=== PATIENT | male | born 1985 | race Caucasian/White ===

== ENCOUNTER 2024-12-06 17:00 | Observation (INO) | payer OTHER, SELFPAY ==
[2024-12-06] VITALS (45 sets, daily range): BP systolic 114–146; BP diastolic 74–92; PULSE 70–86; RESP 16–18; TEMP 36.6; O2SAT 95–100
--- NOTE | 2024-12-06 17:03 | ED.ABDPAIN ---
HPI - Abdominal Pain General Chief Complaint: Abdominal Pain Stated Complaint: abdominal pain Time Seen by Provider: 12/06/24 17:03 Source: patient Mode of arrival: ambulatory Limitations: no limitations History of Present Illness HPI narrative: Patient is a 38-year-old male with a 5 day history of nausea vomiting with anorexia and abdominal pain mid epigastric. MD elicited complaint: abdominal pain Pertinent past history: none Onset (ago): day(s) ( Five) Pain Consistency: constant Location: epigastric Severity: moderate Pain scale (0-10): 5 Quality: stabbing and sharp Radiation: none Migration to: no migration Exacerbating factors: nothing Relieving factors: nothing Context: confirms other ( patient having abdominal pain with nausea and vomiting and no diarrhea for the past 5 days) Associated symptoms: nausea, vomiting and anorexia Treatments prior to arrival: other ( none) Related Data Allergies Allergy/AdvReac Type Severity Reaction Status Date / Time No Known Allergies Allergy Mild Verified 12/06/24 17:02 Review of Systems Review of Systems: All systems reviewed & are unremarkable except as noted in HPI and below Constitutional: Constitutional: Reports no additional constitutional complaints Eyes: Eyes: Reports no additional eye complaints ENT: Reports system reviewed and no additional complaints, except as documented Cardiovascular: Cardiovascular: Reports no additional cardiovascular complaints Respiratory: Respiratory: Reports no additional respiratory complaints Gastrointestinal: Gastrointestinal: Reports no additional gastrointestinal complaints Genitourinary: Genitourinary: Reports no additional male genitourinary complaints Musculoskeletal: Musculoskeletal: Reports no additional musculoskeletal complaints Integumentary/Breasts: Skin/Breast: Reports system reviewed and no additional complaints, except as docu Neurologic: Reports system reviewed and no additional complaints, except as documented Psychiatric: Psychiatric: Reports no additional psychiatric complaints Endocrine: Endocrine: Reports no additional endocrine complaints Hematologic/Lymphatic: Hematologic/Lymphatic: Reports no additional hematologic/lymphatic complaints Allergic/Immunologic: Allergic/Immunologic: Reports no additional allergic/immunologic complaints Exam Const: General: ill appearing Nutritional Appearance: well nourished Orientation/consciousness: patient oriented x3 Limitations: no limitations HENMT: Head: normal to inspection Ears: external ears normal Face/Nose/Sinus: Normal external nose present Eyes: Conjunctivae: conjunctivae normal Pupils: Equal, round and reactive pupils present EOM: EOMs intact bilaterally Neck: Neck: normal visual inspection Chest: Chest palpation & inspection: normal inspection of the chest Resp: Effort & Inspection: normal respiratory effort and not labored Auscultation: clear to auscultation bilaterally and no crackles Cardio: Rate: regular rate Rhythm: regular rhythm Heart sounds: no murmurs GI: Inspection: non-distended GI Palp: Yes Soft to palpation, Yes Tenderness to palpation present (GI) ( mid epigastric), Yes Guarding due to palpation present (GI), No Rigid due to palpation, No Hernia present, No Palpable mass present and No Rebound tenderness present Auscultation: bowels sounds not normal and Hypoactive bowel sounds present : General: Yes bladder normal to palpation Back/Spine/Pelvis: Back: no CVA tenderness Skin: General skin exam: normal color Rashes: no rashes Wounds: no wounds Neuro: General: patient oriented x3 Cranial nerves: Yes Nystagmus not present Speech: normal speech Gait exam (Neuro): Normal gait present Extrem: General: normal to inspection Psych: Mental Status: mental status grossly normal Affect: normal affect Attitude: cooperative Course Vital Signs Vital signs: Vital Signs Temperature 36.6 C 12/06/24 17:08 Pulse Rate 86 12/06/24 17:08 Respiratory Rate 18 12/06/24 17:08 Blood Pressure 120/80 12/06/24 17:08 Pulse Oximetry 96 12/06/24 17:08 Oxygen Delivery Room Air 12/06/24 17:08 Temperature 36.6 C 12/06/24 17:08 Pulse Rate 70 12/06/24 18:46 Respiratory Rate 17 12/06/24 18:46 Blood Pressure 124/75 12/06/24 18:46 Pulse Oximetry 95 12/06/24 18:46 Oxygen Delivery Room Air 12/06/24 17:08 MDM - Abdominal Pain MDM Narrative Medical decision making narrative: patient is a 38-year-old male with abdominal pain and nausea vomiting and no diarrhea for the past 5 days. We will do a COVID swab 1st and if negative we will do a full GI/abdominal pain workup. patient continued to have nausea vomiting and abdominal pain. I discussed the case with Dr. Carcamo and he initially accepted the consult with this patient however Dr. Heredia the hospitalist declined the case. She said the surgeon can admit the case. We called back through the transfer center and they said both providers have declined the case at this time. We will admit the patient to this facility and have the hospitalist decide on further planning if the surgeon as needed in the morning. Lab Data Attestation: I reviewed the patient's lab results. 12/06/24 18:15 12/06/24 18:15 Labs: Lab Results 12/06/24 12/06/24 12/06/24 Range/Units 17:07 18:15 18:20 WBC 10.1 (4.8-10.8) K/mm3 RBC 5.65 (4.70-6.10) M/mm3 Hgb 16.1 (14.0-18.0) g/dL Hct 46.9 (40.0-54.0) % MCV 83.0 (78.0-102.0) fL MCH 28.5 (27.0-31.0) pg MCHC 34.3 (32-36) g/dL RDW 12.8 (11.6-14.4) % Plt Count 266 (150-420) K/mm3 MPV 9.0 (8.7-11.0) fl Immature Gran % (Auto) 0.4 H (0.0-0.0) % Neut % (Auto) 74.2 H (50.0-70.0) % Lymph % (Auto) 16.1 L (18.0-42.0) % Colbert % (Auto) 7.5 (2.0-11.0) % Eos % (Auto) 1.7 (1.0-6.0) % Baso % (Auto) 0.1 (0.0-1.0) % Lymph # (Auto) 1.62 (1.10-4.50) K/mm3 Colbert # (Auto) 0.76 (0.10-0.90) K/mm3 Eos # (Auto) 0.17 (0.02-0.50) K/mm3 Baso # (Auto) 0.01 (0.00-0.10) K/mm3 Abs Immat Gran (auto) 0.04 H (0.00-0.00) K/mm3 Absolute Neuts (auto) 7.48 H (1.70-7.20) K/mm3 Absolute Nucleated RBC 0.00 (0.00-0.00) K/mm3 Nucleated RBC % 0.0 (0-0.0) % PT 11.4 (9.50-12.1) Seconds INR 1.0 APTT 29.3 (23.9-30.70) Sec Sodium 141 (136-145) mmol/L Potassium 3.7 (3.5-5.1) mmol/L Chloride 102 (98-108) mmol/L Carbon Dioxide 26 (21-32) mmol/L Anion Gap 13 H (4-12) mmol/L BUN 8 (7-18) mg/dL Creatinine 1.17 (0.70-1.30) mg/dL Estim Creat Clear Calc 83 ml/min Estimated GFR > 60 (59 - ) Glucose 92 (70-99) mg/dL Calculated Osmolality 290 (285-295) mOsm/kg Lactic Acid 1.0 (0.4-2.0) mmol/L Calcium 9.0 (8.5-10.1) mg/dL Total Bilirubin 0.6 (0.00-1.00) mg/dL AST 11 L (15-37) U/L ALT 17 (16-63) U/L Alkaline Phosphatase 54 (46-116) U/L Troponin I < 4.0 (0.00-60.4) ng/L Total Protein 7.4 (6.4-8.2) g/dL Albumin 4.1 (3.4-5.0) g/dL Lipase 21 (16-77) U/L Urine Color Light yellow (Yellow) Urine Appearance Clear (Clear) Urine pH 6.0 (5.0-8.0) Ur Specific [place] 1.010 (1.010-1.020) Urine Protein Negative (Negative) Urine Glucose (UA) Negative (Negative) Urine Ketones 3+ H (Negative) Ur Blood (Man) Trace-intact H (Negative) Urine Nitrate Negative (Negative) Urine Bilirubin Negative (Negative) Urine Urobilinogen 0.2 (0.2-1.0) mg/dL Leukocyte Esterase Rfl 1+ H (Negative) ROSALEE/UL Urine RBC 0-2 (0-2) /hpf Urine WBC 4-6 H (0-3) /hpf Ur Squamous Epith Cells Rare (Few) /hpf Urine Bacteria Trace (None) /hpf Influenza A (RT-PCR) Negative (Negative) Influenza B (RT-PCR) Negative (Negative) RSV (RT-PCR) Negative (Negative) SARS-CoV-2 RNA (RT-PCR) Negative (Negative) Imaging Data Attestation: I personally reviewed and interpreted this imaging study as follows: Radiologist's impression: ITS Impressions Abdomen/Pelvis CT 12/06/24 20:43 IMPRESSION: 1. No evidence of diverticulitis or intestinal obstruction. Borderline caliber of the appendix with no surrounding fat stranding. Clinical correlation advised. 2. Enlargement of the mesenteric lymph nodes. 3. Possible enteritis. ECG Data EKG #1: Attestation: I personally reviewed and interpreted this ECG as follows: ECG completion date: 12/06/24 ECG completion time: 18:52 Interpretation: patient has early repolarization seen normal rate, sinus rhythm, PACs, non-specific ST changes, normal QRS, normal QT and NL axis Discharge Plan Discharge Clinical Impression: Acute mesenteric lymphadenitis Patient Disposition: Acute Care [facility] Condition: Stable Patient Language: Malian Follow-up/Referrals: UNKNOWN,DOCTOR [Primary Care Provider] - Time of Disposition: 01:13
--- NOTE | 2024-12-06 17:07 | PC.NURSE ---
Covid culture sent to lab
[2024-12-06 17:45] LABS: SARS-CoV-2 RNA PCR Negative (Negative)
[2024-12-06 17:46] LABS: Influenza A QL RT-PCR Negative (Negative); Influenza B QL RT-PCR Negative (Negative); RSV RNA, RT-PCR Negative (Negative)
--- NOTE | 2024-12-06 17:50 | PC.NURSE ---
ERP at bedside for initial assessment
--- NOTE | 2024-12-06 18:15 | PC.NURSE ---
Patient being taken down to bathroom for UA.
[2024-12-06 18:20] LABS: Basophils Absolute Auto 0.01 K/mm3 (0.00-0.10); Basophils Percent Auto 0.1 % (0.0-1.0); Eosinophils Absolute Auto 0.17 K/mm3 (0.02-0.50); Eosinophils Percent Auto 1.7 % (1.0-6.0); Hematocrit 46.9 % (40.0-54.0); Hemoglobin 16.1 g/dL (14.0-18.0); Immature Granulocyte Absolute 0.04 K/mm3 (0.00-0.00); Immature Granulocyte Percent A 0.4 % (0.0-0.0); Lymphocytes Absolute Auto 1.62 K/mm3 (1.10-4.50); Lymphocytes Percent Auto 16.1 % (18.0-42.0); Mean Corpuscular HGB Conc 34.3 g/dL (32-36); Mean Corpuscular Hemoglobin 28.5 pg (27.0-31.0); Monocytes Absolute Auto 0.76 K/mm3 (0.10-0.90); Monocytes Percent Auto 7.5 % (2.0-11.0); Neutrophils Absolute Auto 7.48 K/mm3 (1.70-7.20); Neutrophils Percent Auto 74.2 % (50.0-70.0); Platelet Count Result 266 K/mm3 (150-420); Red Blood Count 5.65 M/mm3 (4.70-6.10); Red Cell Distribution Width 12.8 % (11.6-14.4); White Blood Count 10.1 K/mm3 (4.8-10.8)
[2024-12-06] MEDS: ONDANSETRON INJ 4 MG/2 ML VIAL IV PUSH ×2 (18:26→21:10)
[2024-12-06] MEDS: MORPHINE SULFATE (*CRX) 2 MG/ML INJ IV PUSH ×2 (18:26→22:31)
[2024-12-06 18:32] LABS: Partial Thromboplastin Time 29.3 Sec (23.9-30.70); Prothrombin Time 11.4 Seconds (9.50-12.1)
[2024-12-06 18:35] LABS: Add Urine Microscopic? YES; Appearance Urine Clear (Clear); Bilirubin Urine Negative (Negative); Blood Urine Trace-intact (Negative); Color Urine Light Yellow (Yellow); Glucose Urine UA Negative (Negative); Ketones Urine 3+ (Negative); Leukocyte Esterase Ur 1+ LEU/UL (Negative); Nitrate Urine Negative (Negative); Protein Urine Negative (Negative); Urobilinogen Urine 0.2 mg/dL (0.2-1.0)
--- NOTE | 2024-12-06 18:35 | PC.NURSE ---
Patient had burning at IV site during morphine administration, ERP made aware. No signs of allergic reaction noted, Will continue to monitor.
[2024-12-06 18:37] LABS: Alanine Aminotransferase 17 U/L (16-63); Albumin Level 4.1 g/dL (3.4-5.0); Alkaline Phosphatase 54 U/L (46-116); Anion Gap 13 mmol/L (4-12); Aspartate Amino Transferase 11 U/L (15-37); Bilirubin,Total 0.6 mg/dL (0.00-1.00); Blood Urea Nitrogen 8 mg/dL (7-18); Carbon Dioxide 26 mmol/L (21-32); Chloride 102 mmol/L (98-108); Estimated CRCL calculation 83 ml/min; Estimated Glomerular Filt Rate > 60; Glucose 92 mg/dL (70-99); Lipase 21 U/L (16-77); Osmolality Calculated 290 mOsm/kg (285-295); Potassium 3.7 mmol/L (3.5-5.1); Sodium 141 mmol/L (136-145); Total Protein 7.4 g/dL (6.4-8.2)
[2024-12-06 18:39] LABS: Bacteria Urine Trace /hpf; RBC Urine 0-2 /hpf (0-2); Squamous Epithelial Cell Urine Rare /hpf (Few)
[2024-12-06 18:39] LABS: Troponin I < 4.0 ng/L (0.00-60.4)
--- NOTE | 2024-12-06 18:59 | PC.NURSE ---
No reaction noted from morphine admnistration.
[2024-12-06] MEDS: MAG HYDROX/ALUMINUM HYD/SIMETH 30 ML, PHENobarb/HYOSCY/ATROPINE/SCOP 32.4 MG, LIDOCAINE... PO (20:32)
[2024-12-06] MEDS: SODIUM CHLORIDE 0.9% IV 1,000 ML 999 ML IV CONT (21:51)
[2024-12-07] VITALS (24 sets, daily range): BP systolic 103–133; BP diastolic 64–86; PULSE 57–61; RESP 14–16; TEMP 35.8–36.6; O2SAT 92–100; BMI 28.8
[2024-12-07] MEDS: HYDROmorphone HCL INJ (*CRX) 2 MG/ML VIAL 0.5 MG IV PUSH (00:02)
[2024-12-07] MEDS: SODIUM CHLORIDE 0.9% IV 1,000 ML 999 ML IV CONT (00:07)
[2024-12-07] MEDS: SODIUM CHLORIDE 0.9% IV 1,000 ML 100 ML IV CONT (02:31)
--- NOTE | 2024-12-07 03:16 | ADMGEN ---
This patient, Ismael Nix, was admitted to 2nd Floor Room 205-2. Patient/family oriented to hospital policies and general routines including ID bracelet, bed and alarms, pain management, procedures, bathroom and other care routines, personal items, smoking policy, room service/diet, and visiting hours. Information on how to activate the Rapid Response Team has been discussed. Patient/Family are encouraged to report perceived risks to care and to ask questions if they do not understand what they are told or what they should do.
[2024-12-07 05:46] LABS: Basophils Absolute Auto 0.01 K/mm3 (0.00-0.10); Basophils Percent Auto 0.1 % (0.0-1.0); Eosinophils Absolute Auto 0.16 K/mm3 (0.02-0.50); Eosinophils Percent Auto 1.9 % (1.0-6.0); Hematocrit 40.4 % (40.0-54.0); Hemoglobin 13.6 g/dL (14.0-18.0); Immature Granulocyte Absolute 0.03 K/mm3 (0.00-0.00); Immature Granulocyte Percent A 0.4 % (0.0-0.0); Lymphocytes Absolute Auto 1.82 K/mm3 (1.10-4.50); Lymphocytes Percent Auto 21.4 % (18.0-42.0); Mean Corpuscular HGB Conc 33.7 g/dL (32-36); Mean Corpuscular Hemoglobin 28.7 pg (27.0-31.0); Mean Corpuscular Volume 85.2 fL (78.0-102.0); Mean Platelet Volume 9.1 fl (8.7-11.0); Monocytes Absolute Auto 0.68 K/mm3 (0.10-0.90); Neutrophils Absolute Auto 5.79 K/mm3 (1.70-7.20); Neutrophils Percent Auto 68.2 % (50.0-70.0); Platelet Count Result 208 K/mm3 (150-420); Red Blood Count 4.74 M/mm3 (4.70-6.10); Red Cell Distribution Width 12.9 % (11.6-14.4); White Blood Count 8.5 K/mm3 (4.8-10.8)
[2024-12-07 06:01] LABS: Alanine Aminotransferase 10 U/L (16-63); Albumin Level 2.9 g/dL (3.4-5.0); Alkaline Phosphatase 41 U/L (46-116); Anion Gap 7 mmol/L (4-12); Aspartate Amino Transferase < 10 U/L (15-37); Bilirubin,Total 0.4 mg/dL (0.00-1.00); Blood Urea Nitrogen 9 mg/dL (7-18); Carbon Dioxide 29 mmol/L (21-32); Chloride 106 mmol/L (98-108); Estimated CRCL calculation 93 ml/min; Estimated Glomerular Filt Rate > 60; Glucose 93 mg/dL (70-99); Osmolality Calculated 292 mOsm/kg (285-295); Potassium 3.7 mmol/L (3.5-5.1); Sodium 142 mmol/L (136-145); Total Protein 5.8 g/dL (6.4-8.2)
[2024-12-07] MEDS: PIPERACILLN/TAZ 3.375GM/NS50ML 3.375 GM/50 ML BAG IVPB ×2 (06:02)
--- NOTE | 2024-12-07 07:09 | PC.NURSE ---
called Roxy, , and updated her on patient status and plan of care.
--- NOTE | 2024-12-07 11:48 | PM.SD2 ---
Same Day Admit/Disch: HPI History of Present Illness Chief complaint: MESENTERIC LYMPHADENITIS/Enteritis Narrative: Ismael Nix is a 39 year old male presented to the emergency department with complaints of nausea vomiting and abdominal pain. Patient had reported symptoms began about 5 days prior with nausea and vomiting got better after 3 days but then returned. patient states he was unable to keep oral intake down and had intermittent severe abdominal pain. patient with no past medical history but did report he began taking a GLP 1 medication about 6 weeks ago and increased his dose recently. Patient did not take anything to alleviating symptoms since the seemed to be improving after 3 days but then returned. Labs were unremarkable with normal WBC and afebrile. patient denied chest pain, shortness a breath, dizziness fevers or chills, but did endorse Nausea, vomiting, ABD pain a few episodes of diarrhea. initial CT abdomen did show some borderline caliber of the appendix with surrounding fat stranding, enlargement of the mesenteric lymph nodes with possible enteritis. ER physician had spoke with General surgery over at [facility] as well as hospitalist who at that time reviewed scans and did not see any need for transfer. patient was admitted to the medical unit overnight and started on antiemetics and IV fluids as well Zosyn. [facility] Social History Social History Smoking status: Never smoker Alcohol intake: current Drinks per week: 1 Substance use type: does not use Do You Feel Safe in your Home?: Yes Lack of Transportation: No Lack of Food: Never True Current Housing: I Have Housing Concerned About Future Housing: No Difficulty Paying Gas/Electric Bills: No Difficulty Paying for Meds: No Currently Unemployed: No Education: Bachelor's Degree Difficulty w/ Childcare or Family Care: No Spiritual care concerns: No Same Day Admit/Disch: Med Pre-admit Medications Home Medications ?Medication ?Instructions ?Recorded ?Confirmed ?Type dicyclomine 10 mg capsule 10 mg PO TID PRN abdominal pain 12/07/24 Rx #30 caps metronidazole 500 mg tablet 500 mg PO Q12H #10 tabs 12/07/24 Rx ondansetron 4 mg disintegrating 4 mg PO Q8H PRN nausea and 12/07/24 Rx tablet vomiting #30 tabs Review of Systems Review of Systems All systems reviewed & are unremarkable except as noted in HPI and below Exam Const: General: comfortable and no acute distress HENMT: Mouth: Yes moist mucous membranes Eyes: General: appearance normal, both eyes and all related structures Neck: Neck: supple and no JVD Resp: Auscultation: clear to auscultation bilaterally Cardio: Rate: regular rate Rhythm: regular rhythm GI: GI Palp: Yes Soft to palpation and Yes Tenderness to palpation present (GI) (But improved ) Auscultation: normal bowel sounds Skin: General skin exam: normal color Neuro: Speech: normal speech Extrem: General: normal to inspection Psych: Mental Status: mental status grossly normal DS: Data Data Completed and Pending Labs on day of discharge: Labs from last 24 hours 12/07/24 12/06/24 12/06/24 05:40 18:20 18:15 WBC 8.5 10.1 RBC 4.74 5.65 Hgb 13.6 L 16.1 Hct 40.4 46.9 MCV 85.2 83.0 MCH 28.7 28.5 MCHC 33.7 34.3 RDW 12.9 12.8 Plt Count 208 266 MPV 9.1 9.0 Immature Gran % (Auto) 0.4 H 0.4 H Neut % (Auto) 68.2 74.2 H Lymph % (Auto) 21.4 16.1 L [place] % (Auto) 8.0 7.5 Eos % (Auto) 1.9 1.7 Baso % (Auto) 0.1 0.1 Lymph # (Auto) 1.82 1.62 [place] # (Auto) 0.68 0.76 Eos # (Auto) 0.16 0.17 Baso # (Auto) 0.01 0.01 Abs Immat Gran (auto) 0.03 H 0.04 H Absolute Neuts (auto) 5.79 7.48 H Absolute Nucleated RBC 0.00 0.00 Nucleated RBC % 0.0 0.0 PT 11.4 INR 1.0 APTT 29.3 Sodium 142 141 Potassium 3.7 3.7 Chloride 106 102 Carbon Dioxide 29 26 Anion Gap 7 13 H BUN 9 8 Creatinine 1.03 1.17 Estim Creat Clear Calc 93 83 Estimated GFR > 60 > 60 Glucose 93 92 Calculated Osmolality 292 290 Lactic Acid 1.0 Calcium 8.0 L 9.0 Total Bilirubin 0.4 0.6 AST < 10 L 11 L ALT 10 L 17 Alkaline Phosphatase 41 L 54 Troponin I < 4.0 Total Protein 5.8 L 7.4 Albumin 2.9 L 4.1 Lipase 21 Urine Color Light yellow Urine Appearance Clear Urine pH 6.0 Ur Specific [place] 1.010 Urine Protein Negative Urine Glucose (UA) Negative Urine Ketones 3+ H Ur Blood (Man) Trace-intact H Urine Nitrate Negative Urine Bilirubin Negative Urine Urobilinogen 0.2 Leukocyte Esterase Rfl 1+ H Urine RBC 0-2 Urine WBC 4-6 H Ur Squamous Epith Cells Rare Urine Bacteria Trace C. trachomatis (PCR) Pending Influenza A (RT-PCR) Influenza B (RT-PCR) N. gonorrhoeae (PCR) Pending RSV (RT-PCR) SARS-CoV-2 RNA (RT-PCR) 12/06/24 17:07 WBC RBC Hgb Hct MCV MCH MCHC RDW Plt Count MPV Immature Gran % (Auto) Neut % (Auto) Lymph % (Auto) [place] % (Auto) Eos % (Auto) Baso % (Auto) Lymph # (Auto) [place] # (Auto) Eos # (Auto) Baso # (Auto) Abs Immat Gran (auto) Absolute Neuts (auto) Absolute Nucleated RBC Nucleated RBC % PT INR APTT Sodium Potassium Chloride Carbon Dioxide Anion Gap BUN Creatinine Estim Creat Clear Calc Estimated GFR Glucose Calculated Osmolality Lactic Acid Calcium Total Bilirubin AST ALT Alkaline Phosphatase Troponin I Total Protein Albumin Lipase Urine Color Urine Appearance Urine pH Ur Specific [place] Urine Protein Urine Glucose (UA) Urine Ketones Ur Blood (Man) Urine Nitrate Urine Bilirubin Urine Urobilinogen Leukocyte Esterase Rfl Urine RBC Urine WBC Ur Squamous Epith Cells Urine Bacteria C. trachomatis (PCR) Influenza A (RT-PCR) Negative Influenza B (RT-PCR) Negative N. gonorrhoeae (PCR) RSV (RT-PCR) Negative SARS-CoV-2 RNA (RT-PCR) Negative Imaging Radiologist's impression: CT abdomen pelvis w con Ordering provider: Kris Benavidez MD History: 38 years Male with . Abdominal pain, nausea, vomiting x5 days . Comparison: None. Technique: CT abdomen and pelvis with IV and without oral contrast. Automated exposure control and iterative reconstruction technique were employed. The dose-length product was 472.11 mGy-cm. 100 mL Omnipaque 350 was given IV. Findings: VISUALIZED LOWER CHEST: Minimal opacification in the mid and lower medially is noted most likely focal atelectasis. UPPER ABDOMINAL ORGANS: Liver: Normal. Gallbladder: Normal. Spleen: Normal. Stomach/duodenum: Stomach is over filled with fluids. Pancreas: Normal. Adrenals: Normal. Kidneys: Normal. PELVIC ORGANS: The bladder is underfilled. BOWEL AND MESENTERY: Colon: Mild sigmoid diverticulosis without diverticulitis. Appendix is demonstrated with no evidence of appendicitis.Appendix Caliber is between 6 and 7 mm with no surrounding fat stranding. clinical correlation advised. Small Bowel: Fluid filled small bowel loops are seen in the pelvic area. Enteritis cannot be excluded. No obstruction. Peritoneum/mesentery: No free air or free fluid. No mesenteric lymphadenopathy. Small mesenteric lymph nodes are noted with the largest measures 1.4 cm. RETROPERITONEUM: Normal aorta. No retroperitoneal lymphadenopathy. MUSCULOSKELETAL: Superficial soft tissues: The superficial soft tissues are normal. Bones: Normal spine. IMPRESSION: 1. No evidence of diverticulitis or intestinal obstruction. Borderline caliber of the appendix with no surrounding fat stranding. Clinical correlation advised. 2. Enlargement of the mesenteric lymph nodes. 3. Possible enteritis. FOLLOW-UP History: 39 years Male with . RLQ PAIN X1DAY,CONCERN FOR APPY . Comparison: December 06, 2024 Technique: CT abdomen and pelvis with IV and without oral contrast. Automated exposure control and iterative reconstruction technique were employed. The dose-length product was 657.56 mGy-cm. 100 mL Omnipaque 350 was given IV. Findings: VISUALIZED LOWER CHEST: Dependent atelectatic changes. UPPER ABDOMINAL ORGANS: Liver: Normal. Gallbladder: Residual contrast is seen in the gallbladder. Spleen: Normal. Stomach/duodenum: Normal. Pancreas: Normal. Adrenals: Normal. Kidneys: Normal. PELVIC ORGANS: The bladder is underfilled with contrast seen in the urinary bladder. BOWEL AND MESENTERY: Colon: No evidence of diverticulitis. Fecal material is seen in the colon. Normal appendix. Small Bowel: Slightly dilated small bowel loops with fluid content are noted in the pelvic area which is suggestive of enteritis versus diarrhea. Fluid is seen also seen in the right side of the colon. Clinical correlation advised. No definite obstruction. Peritoneum/mesentery: No free air or free fluid. No mesenteric lymphadenopathy. Slightly Enlarged mesenteric lymph nodes are seen with the largest measures 1.2 cm. RETROPERITONEUM: Mild atheromatous disease of the abdominal aorta. No retroperitoneal lymphadenopathy. Small para-aortic lymph nodes are noted. MUSCULOSKELETAL: Superficial soft tissues: The superficial soft tissues are normal. Bones: Age appropriate degenerative changes of the spine. IMPRESSION: 1. Dilated bowel loops with no definite evidence of obstruction. Follow-up advised. Possibility of enteritis and diarrhea is not excluded. 2. Slightly enlarged mesenteric lymph nodes. 3. No evidence of appendicitis, or diverticulitis. DS: Summary Hospital Course Reason for hospitalization: MESENTERIC LYMPHADENITIS/Enteritis Hospital Course: Ismael Nix is a 39 year old male presented to the emergency department with complaints of nausea vomiting and abdominal pain. Patient had reported symptoms began about 5 days prior with nausea and vomiting got better after 3 days but then returned. patient states he was unable to keep oral intake down and had intermittent severe abdominal pain. patient with no past medical history but did report he began taking a GLP 1 medication about 6 weeks ago and increased his dose recently. Patient did not take anything to alleviating symptoms since the seemed to be improving after 3 days but then returned. Labs were unremarkable with normal WBC and afebrile. patient denied chest pain, shortness a breath, dizziness fevers or chills, but did endorse Nausea, vomiting, ABD pain a few episodes of diarrhea. initial CT abdomen did show some borderline caliber of the appendix with surrounding fat stranding, enlargement of the mesenteric lymph nodes with possible enteritis. ER physician had spoke with General surgery over at [facility] as well as hospitalist who at that time reviewed scans and did not see any need for transfer. patient was admitted to the medical unit overnight and started on antiemetics and IV fluids as well Zosyn. patient was started on IV fluids and antiemetics patient had no further episodes of nausea and vomiting and abdominal pain had improved overnight and remained afebrile and continued to have normal WBC. follow-up CT abdomen with contrast following day showed normal appendix, dilated bowel loops with no obstruction likely enteritis and diarrhea, mesenteric lymph nodes had slightly improved likely inflammatory response to enteritis. patient was tolerating oral intake following day he was seen and assessed at time discharge in no acute distress no further abdominal pain denied any nausea vomiting. at time of discharge prescribed patient on 5 day antibiotic course Flagyl as well as Zofran and dicyclomine to help with GI spasms I did recommend he lower his GLP 1 medication back to previous dosage but can follow-up with his primary care physician regarding this. patient and his at bedside were instructed to seek medical attention if symptoms returned and he began to any severe nausea vomiting, abdominal pain fever and loss gas or bowel movements. patient acknowledged and agreed with discharge plan patient discharged home with . Status at Discharge Functional status at discharge: independent ambulation Overall status at discharge: patient is back to baseline Time Spent with Patient Time attestation: Total time spent providing and/or coordinating discharge services: Time spent: Greater than 30 minutes DS: Admitting Diagnosis Discharge Date 12/07/2024 Admitting Diagnosis MESENTERIC LYMPHADENITIS/Enteritis DS: Discharge Diagnosis Discharge Diagnosis (1) Acute mesenteric lymphadenitis: Code(s): I88.0 - Nonspecific mesenteric lymphadenitis Status: Acute (2) Enteritis: Code(s): K52.9 - Noninfective gastroenteritis and colitis, unspecified Status: Acute Assessment and Plan: Prescribed Flagyl x5 days, dicyclomine, and Zofran encourage hydration Plan disposition: Discharged to home Discharge Plan Discharge Attending physician on discharge: Pedro Suárez Consulting providers: Gavi Segovia Discharging Clinician: Gavi Segovia Anticipated Discharge Date/Time: 12/07/24 11:36 Patient Disposition: Home, Self-Care Activity: may shower and as tolerated Diet: as tolerated Discharge Instructions: Nausea/vomiting/Viral enteritis I have prescribed zofran sublingual for Nausea as needed I have also prescribed Dicyclomine as needed for Gastric spasms I would recommend decreasing your GLP 1 medication back to previous dose I encourage hydration May advance diet as tolerated If symptoms return and you are experiencing severe ABD pain, nausea vomiting without gas or Bowel movements please seek medical attention. How can you care for yourself at home? ? Keep track of any new symptoms or changes in your symptoms. ? Rest until you feel better. ? Be safe with medicines. Take your medicines exactly as prescribed. Call your doctor if you think you are having a problem with your medicine. ? Do not drive after taking a prescription pain medicine. ? Ensure to follow-up with primary care physician as indicated and provide updated medication list provided to you at discharge. When should you call for help? Call 911 anytime you think you may need emergency care. For example, call if: ? You passed out (lost consciousness). Call your doctor now or seek immediate medical care if: ? You have new symptoms like fever, difficulty breathing, Chest pain, vomiting, or rash. ? You have new or different pain. ? You are confused and are having trouble thinking clearly. ? Your symptoms are getting worse. Watch closely for changes in your health, and be sure to contact your doctor if: ? You do not get better as expected. Patient Instructions: Antibiotic Form, Gastroenteritis (DC), Enteritis (DC) Patient Language: American Stand Alone Forms: General Discharge Information Follow-up/Referrals: Liza,Tracie Junior MD [Primary Care Provider] - 2 weeks Discharge Medications: New ondansetron 4 mg tablet,disintegrating 4 mg PO Q8H PRN (Reason: nausea and vomiting) Qty: 30 0RF dicyclomine 10 mg capsule 10 mg PO TID PRN (Reason: abdominal pain) Qty: 30 0RF metronidazole 500 mg tablet 500 mg PO Q12H Qty: 10 0RF Date of admission: 12/07/24 01:14 Primary Care Provider: Corry*Tracie Admitting Provider: Pedro Suárez Attending physician on admission: Pedro Suárez Condition: Stable Quality VTE Prophylaxis VTE prophylaxis: mechanical ordered -Patient's previous records reviewed on admission -ER notes reviewed in detail on admission -discussed all findings and current treatment plan with patient/Family/POA -Consultations reviewed for recommendations -Patient's disposition for safe discharge discussed with case management director Dictation performed by [employer] direct speech recognition software, therefore literacy tutor variants and typographical errors may occur. Hospitalist MIPS Advance Care Plan I have confirmed that the patient's Advanced Care Plan is present, code status is documented, or surrogate decision maker is listed in patient medical record.: Yes Medication Reconciliation I have utilized all available resources to obtain, update and review the patients current medications (includes all prescriptions, OTC, herbals, cannabis, and nutritional supplements).: Yes The patient is not eligible for med reconciliation; the patient is in a emergent medical situation where delaying treatment would jeopardize the patients health.: No Heart Failure (Exclusion) Patient has history of Heart Transplant or Left Ventricular Assistive Device?: No IF YES, STOP HERE Heart Failure (Qualifier) Patient has current or prior documentation of LVEF less than or equal to 40%, or mod/servere depressed LVSF?: No IF NO, STOP HERE
[2024-12-07] MEDS: polyethylene glycoL 3350 17 GM POWD.PACK PO (12:44)
--- NOTE | 2024-12-07 13:07 | PC.NURSE ---
Pt discharged to home. VSS. Discharge information given to pt. New medications reviewed with pt: doseages, reason, times and side effects. Prescription sent electronically to pt's pharmacy. Pt taken to family car via WC.
[2024-12-08 08:19] LABS: Chlamydia trachomatis NOT DETECTED (NOT DETECTE); Neisseria gonorrhoeae PCR NOT DETECTED (NOT DETECTE)
== END 2024-12-07 12:50 | disposition home or self-care (01) ==
LOC: CHSED 12-07 01:13 → CHS2ND 12-07 07:22
PROVIDERS: Admitting Provider Internal Medicine; Emergency Provider Emergency Medicine; PCP Internal Medicine; Visit Provider Internal Medicine
DX: I88.0 Nonspecific mesenteric lymphadenitis (principal); K52.9 Noninfective gastroenteritis and colitis, unspecified; Z20.822 Contact with and (suspected) exposure to COVID-19
CPT/HCPCS: 36415; 74177; 80053; 81001; 83605; 83690; 84484; 85025; 85610; 85730; 87040; 87086; 87491; 87591; 87637; 93005; 96361; 96365; 96366; 96375; 96376; 99285; A9270; G0378; J1171; J2270; J2405; J2543; J7030; Q9967